=== PATIENT | male | born 1965 | race Caucasian/White ===

== ENCOUNTER 2018-12-06 21:51 | Emergency (ER) | payer OTHER ==
[2018-12-06] MEDS ORDERED: CLINDAMYCIN 600 MG INJ IM (23:30)
[2018-12-06] MEDS: CLINDAMYCIN 300 MG INJ IM (23:37)
[2018-12-06] MEDS: KETOROLAC 60 MG INJ IM (23:37)
== END 2018-12-06 23:20 | disposition home or self-care (01) ==
LOC: E/R 21:51
DX: L03.317 Cellulitis of buttock (principal)
CPT/HCPCS: 96372; 99284-25; J1885